=== PATIENT | male | born 1985 | race Caucasian/White ===

== ENCOUNTER 2017-03-26 15:55 | Emergency (ER) | payer SELFPAY ==
--- NOTE | 2017-03-26 17:49 | UC ---
Skin Complaint HPI - HPI Summary HPI Summary: RED ITCHY WEEPING RASH ON SCROTUM AND BILATERAL (MEDIAL) THIGHS FOR TWO WEEKS. NO FEVER. - History of Current Complaint Chief Complaint: UCRash Time Seen by Provider: 03/26/17 17:18 Stated Complaint: RASH-INNER THIGH Hx Obtained From: Patient Onset/Duration: Gradual Onset, Lasting Weeks, Still Present Skin Exposure Onset/Duration: Weeks Ago Timing: Constant Onset Severity: Mild Current Severity: Mild Location: Discrete - BILATERAL MEDIAL THIGHS Character: Pruritus, Redness Aggravating: Nothing Alleviating: Nothing Associated Signs & Symptoms: Positive: Rash, Tenderness. Negative: Fever, Chills, Drainage Related History: Possible Reaction to: Environmental Exposure - Allergy/Home Medications Allergies/Adverse Reactions: Allergies Allergy/AdvReac Type Severity Reaction Status Date / Time No Known Allergies Allergy Verified 03/26/17 16:32 Review of Systems Constitutional: Negative Skin: Rash Eyes: Negative ENT: Negative Respiratory: Negative Cardiovascular: Negative Gastrointestinal: Negative Genitourinary: Negative Motor: Negative Neurovascular: Negative Musculoskeletal: Negative Neurological: Negative Psychological: Negative All Other Systems Reviewed And Are Negative: Yes PMH/Surg Hx/FS Hx/Imm Hx Previously Healthy: Yes Endocrine History Of: Denies: Diabetes, Thyroid Disease Cardiovascular History Of: Reports: Hypertension Denies: Cardiac Disorders, Pacemaker/ICD Respiratory History Of: Denies: COPD, Asthma GI/ History Of: Denies: Ulcer Psychological History Of: Denies: Depression Cancer History Of: Denies: Lung Cancer - Surgical History Surgical History: Yes Surgery Procedure, Year, and Place: bilateral knee reconstruction - Family History Known Family History: Positive: Hypertension, Diabetes - Social History Occupation: Employed Full-time Lives: With Family Alcohol Use: Rare Substance Use Type: None Smoking Status (MU): Light Every Day Tobacco Smoker Type: Cigarettes Amount Used/How Often: 2 CIGS PER DAY Length of Time of Smoking/Using Tobacco: 15 yrs Have You Smoked in the Last Year: Yes Cessation Counseling: Patient Advised to Stop Physical Exam Triage Information Reviewed: Yes Appearance: Well-Appearing, No Pain Distress, Well-Nourished Vital Signs: Initial Vital Signs Temp 98 F 03/26/17 16:25 Pulse 71 03/26/17 16:25 Resp 18 03/26/17 16:25 BP 150/79 03/26/17 16:25 Vital Signs Reviewed: Yes Eye Exam: Normal ENT Exam: Normal ENT: Positive: Normal ENT inspection, Hearing grossly normal, Pharynx normal, TMs normal Dental Exam: Normal Neck exam: Normal Neck: Positive: Supple, Nontender, No Lymphadenopathy Respiratory Exam: Normal Respiratory: Positive: Chest non-tender, Lungs clear, Normal breath sounds, No respiratory distress, No accessory muscle use Cardiovascular Exam: Normal Cardiovascular: Positive: RRR, No Murmur, Pulses Normal Abdominal Exam: Normal Musculoskeletal Exam: Normal Musculoskeletal: Positive: Strength Intact, ROM Intact Neurological Exam: Normal Psychological Exam: Normal Psychological: Positive: Normal Response To Family Skin: Positive: rashes - ERRYTHEMATOUS MACUAL RASH SCROTUM AND BILATERAL MEDIAL THIGHS Course/Dx - Differential Diagnoses - Skin Complaint Differential Diagnoses: Cellulitis, Diabetes, MRSA, Poison Brii, Poison [place], Tinea, Varicella Zoster, Viral Exanthem - Diagnoses Provider Diagnoses: TINEA CRURIS Discharge - Discharge Plan Condition: Stable Disposition: HOME Prescriptions: Fluconazole [Diflucan 150 MG (NF)] 150 mg PO ONCE #1 tab Ketoconazole 2 % CREAM (NF) [Nizoral 2% CREAM (NF)] 1 applic TOPICAL TID #1 tube Patient Education Materials: Gianni Witt (ED) Referrals: Michael Ambriz MD [Primary Care Provider] -
[2017-03-26 18:02] VITALS: BP 137/101
== END 2017-03-26 18:06 | disposition home or self-care (01) ==
LOC: UCCORT 15:55
DX: B35.6 Tinea cruris (principal); F17.210 Nicotine dependence, cigarettes, uncomplicated; Z96.653 Presence of artificial knee joint, bilateral
CPT/HCPCS: 99212; G0463

== ENCOUNTER 2018-04-08 15:09 | Emergency (ER) | payer OTHER ==
--- OUTSIDE RECORDS SUMMARY | 2018-04-08 15:25 | XMS REPORT ---
:1985 External Reference #:[id number] Author Organization [facility] 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 Payers Type Date Identification Numbers Payment Provider Subscriber Commercial Effective: Policy Number: [facility] Rahul Valerio 2017 [id number] PayID: [id number] [address] [place] [address] Medipalmetto Part B Effective: Policy Number: Medicaid/[facility] Rahul Valerio 2016 [id number] Systems PayID: [id number] [address] [place] [address] Medigap Part B Effective: Policy Number: Medicaid/[facility] Rahul Valerio 2003 [id number] Systems Expires: 2010 PayID: [id number] [address] [place] [address] Commercial Expires: 2010 Policy Number: [facility] Rahul Valerio [id number] PayID: [id number] [place] [address] Problems Date Description Provider Status Onset: 10/01/2014 Shoulder joint unstable Michael Ambriz M.D. Active Onset: 10/01/2014 Closed fracture of clavicle Michael Ambriz M.D. Active Onset: 04/01/2015 Atopic dermatitis Michael Ambriz M.D. Active Onset: 04/01/2015 Benign essential hypertension Michael Ambriz M.D. Active Onset: 04/01/2015 Allergic rhinitis Michael Ambriz M.D. Active Onset: 04/01/2015 Tobacco user Michael Ambriz M.D. Active Onset: 04/11/2015 Hypothyroidism Michael Ambriz M.D. Active Family History Date Family Member(s) Problem(s) Comments Father 55 Father No Current Problems Mother 53 Mother No Current Problems First Sister 29 First Sister No Current Problems Social History Type Date Description Comments Marital Status Legal Status: Never Cigarette Use Current Cigarette Smoker pt has smoked half a pack a day for 10 years ETOH Use Currently consumes alcohol pt will drink heavy twice a week Smoking Patient is a current smoker, smokes every day Daily Caffeine Consumes on average 48oz of soda per day Allergies, Adverse Reactions, Alerts Date Description Reaction Status Severity Comments 02/23/2012 NKDA active Medications Medication Date Status Form Strength Qnty SIG Indications Ordering Provider Lisinopril-[place] Active Tablets 20-25mg 90tabs 1 by mouth I10 Pb, chlorothiazide 018 every day Katemad Krzysztof Oneill Clobetasol Active Cream 0.05% 120gm apply to L40.9 Pb, Propionate E 018 affected Ahmad M., skin three M.D. times a day as needed Clobetasol Hx Cream 0.05% 60gm apply to L40.9 Pb, Propionate E 016 - affected Ahmad M., skin three M.D. 018 times a day as needed Lotrisone Hx Cream 1-0.05% 135gm apply to B35.4 Pb, 016 - affected Ahmad M., area three M.D. 016 times a day Clotrimazole/Bet Hx Lotion 1-0.05% 60ml Apply To B35.4 Pb, amethasone 016 - Affected Ahmad M., Dipropionate Area tid M.D. 018 prn Prednisone 01/07/2 Hx Tablets 20mg 18tabs 3 tab by M54.5 Pb, 016 - mouth Ahmad M., daily 3 M.D. 016 days, then 2 tab daily x 3 d , then 1 tab daily 3d Ciprofloxacin Hx Tablets 500mg 20tabs 1 by mouth 461.8 Pb, HCL 015 - twice a Ahmad M., day M.D. 015 382.9 466.0 Prednisone 01/18/2015 - Hx Tablets 20mg 8tabs 2 tab by 461.8 Pb, Ahmad 01/22/2015 mouth daily 4 M., M.D. days 478.19 786.05 Lisinopril-Hydrochlorothiazide 01/18/2015 Hx Tablets 20-12.5mg 90tabs 1 tab I10 Pb, - by mad 03/30/2018 mouth M., every M.D. day No Active Medications 10/01/2014 [facility] Krzysztof Oneill Erythromycin 12/27/2013 Hx Ointment 5mg/GM 1Tube apply 918. Pb, - 1cm 1 mad 01/01/2014 ribbon MPratibha, into M.D. left lower lid 4x/day for 5 days 372.00 No Active 04/24/2013 - Hx Unknown Medications 12/27/2013 Diflucan 02/23/2012 - Hx Tablets 100mg 1 by mouth 110.5 Pb, [facility]D Krzysztof Oneill Lotrisone 02/23/2012 - Hx Cream 1-0.05% bid x 10d 110.5 Pb, [facility] 04/03/2013 Krzysztof Oneill Immunizations CPT Code Status Date Vaccine Lot # [id number] Given 08/31/2000 Td 7 Years And Older [id number] Refused 10/11/2015 Flu Vaccine [id number] Refused 10/01/2014 Flu Vaccine Vital Signs Date Vital Result Comment 03/30/2018 BP Systolic 148 mmHg BP Diastolic 88 mmHg Height 72 inches 6'0" Weight 304.00 lb BMI (Body Mass Index) 41.2 kg/m2 Heart Rate 78 /min Respiratory Rate 16 /min 03/16/2018 BP Systolic 146 mmHg BP Diastolic 100 mmHg Height 72 inches 6'0" Weight 304.00 lb BMI (Body Mass Index) 41.2 kg/m2 Heart Rate 66 /min Respiratory Rate 18 /min 11/03/2016 BP Systolic 138 mmHg BP Diastolic 82 mmHg Height 72 inches 6'0" Weight 304.00 lb BMI (Body Mass Index) 41.2 kg/m2 Heart Rate 87 /min Respiratory Rate 18 /min 10/13/2016 BP Systolic 146 mmHg BP Diastolic 90 mmHg Height 72 inches 6'0" Weight 304.00 lb BMI (Body Mass Index) 41.2 kg/m2 Heart Rate 71 /min Respiratory Rate 18 /min 06/18/2016 BP Systolic 138 mmHg BP Diastolic 84 mmHg Height 72 inches 6'0" Weight 301.00 lb BMI (Body Mass Index) 40.8 kg/m2 Heart Rate 98 /min Respiratory Rate 22 /min 05/12/2016 BP Systolic 126 mmHg BP Diastolic 80 mmHg Height 72 inches 6'0" Weight 296.00 lb BMI (Body Mass Index) 40.1 kg/m2 Heart Rate 76 /min Respiratory Rate 20 /min 04/28/2016 BP Systolic 130 mmHg BP Diastolic 82 mmHg Height 72 inches 6'0" Weight 296.00 lb BMI (Body Mass Index) 40.1 kg/m2 Heart Rate 82 /min Respiratory Rate 19 /min 11/07/2015 BP Systolic 144 mmHg BP Diastolic 92 mmHg Height 72 inches 6'0" Weight 300.00 lb BMI (Body Mass Index) 40.7 kg/m2 Heart Rate 93 /min Body Temperature 96.3 F Respiratory Rate 18 /min 10/28/2015 BP Systolic 139 mmHg BP Diastolic 89 mmHg Height 72 inches 6'0" Weight 302.00 lb BMI (Body Mass Index) 41.0 kg/m2 Heart Rate 79 /min Body Temperature 97.0 F Respiratory Rate 18 /min 10/11/2015 BP Systolic 130 mmHg BP Diastolic 82 mmHg Height 72 inches 6'0" Weight 305.00 lb BMI (Body Mass Index) 41.4 kg/m2 Heart Rate 76 /min Respiratory Rate 18 /min 04/11/2015 BP Systolic 138 mmHg BP Diastolic 89 mmHg Height 72 inches 6'0" Weight 304.00 lb BMI (Body Mass Index) 41.2 kg/m2 Heart Rate 88 /min Respiratory Rate 18 /min 04/01/2015 BP Systolic 119 mmHg BP Diastolic 78 mmHg Height 72 inches 6'0" Weight 304.00 lb BMI (Body Mass Index) 41.2 kg/m2 Heart Rate 72 /min Respiratory Rate 18 /min 03/01/2015 BP Systolic 154 mmHg machine BP Diastolic 87 mmHg machine BP Systolic Recheck 142 mmHg manual BP Diastolic Recheck 88 mmHg manual Height 72 inches 6'0" Weight 314.00 lb BMI (Body Mass Index) 42.6 kg/m2 Respiratory Rate 18 /min 01/18/2015 BP Systolic 142 mmHg manual BP Diastolic 98 mmHg manual BP Systolic Recheck 160 mmHg machine BP Diastolic Recheck 101 mmHg machine Height 72 inches 6'0" Weight 309.00 lb BMI (Body Mass Index) 41.9 kg/m2 Heart Rate 84 /min Body Temperature 98.2 F Respiratory Rate 16 /min 10/19/2014 BP Systolic 149 mmHg BP Diastolic 95 mmHg BP Systolic Recheck 158 mmHg BP Diastolic Recheck 96 mmHg Height 72 inches 6'0" Weight 307.00 lb BMI (Body Mass Index) 41.6 kg/m2 Heart Rate 89 /min Respiratory Rate 20 /min 10/01/2014 BP Systolic 153 mmHg BP Diastolic 96 mmHg BP Systolic Recheck 138 mmHg BP Diastolic Recheck 86 mmHg Height 72 inches 6'0" Weight 312.00 lb BMI (Body Mass Index) 42.3 kg/m2 Heart Rate 86 /min Respiratory Rate 16 /min 12/27/2013 BP Systolic 130 mmHg BP Diastolic 74 mmHg Height 72 inches 6'0" Weight 289.00 lb BMI (Body Mass Index) 39.2 kg/m2 Heart Rate 111 /min Respiratory Rate 18 /min 04/24/2013 BP Systolic 130 mmHg BP Diastolic 82 mmHg Height 72 inches 6'0" Weight 264.00 lb BMI (Body Mass Index) 35.8 kg/m2 Heart Rate 100 /min Respiratory Rate 20 /min 02/23/2012 BP Systolic 148 mmHg BP Diastolic 96 mmHg Height 72 inches 6'0" Weight 262.00 lb BMI (Body Mass Index) 35.5 kg/m2 Heart Rate 91 /min Last Menstrual Period 0 Respiratory Rate 14 /min Results Test Date Test Result H/L Range Note Laboratory test finding 03/16/2018 Hemoglobin A1c (Glyco HGB) 5.1 % 4.0- 5.6 1 Erythrocyte Sed Rate 11 mm/Hr 0-14 Vitamin D Total 25(Oh) 19.8 ng/mL Low 20-50 Lipid Profile (Trig/Chol/HDL) 03/16/2018 Triglycerides 294 mg/dL 2 Cholesterol 167 mg/dL 3 HDL Cholesterol 26.8 mg/dL 4 LDL Cholesterol 81 mg/dL 5 CBC Auto Diff 03/16/2018 White Blood Count 7.6 10^3/uL 3.5-10.8 Red Blood Count 5.24 10^6/uL 4.0-5.4 Hemoglobin 14.8 g/dL 14.0-18.0 Hematocrit 43 % 42-52 Mean Corpuscular Volume 83 fL 80-94 Mean Corpuscular Hemoglobin 28 pg 27-31 Mean Corpuscular HGB Conc 34 g/dL 31-36 Red Cell Distribution Width 15 % 10.5-15 Platelet Count 301 10^3/uL 150-450 Mean Platelet Volume 8.0 um3 7.4-10.4 Abs Neutrophils 4.6 10^3/uL 1.5-7.7 Abs Lymphocytes 2.4 10^3/uL 1.0-4.8 Abs Monocytes 0.4 10^3/uL 0-0.8 Abs Eosinophils 0.1 10^3/uL 0-0.6 Abs Basophils 0 10^3/uL 0-0.2 Abs Nucleated RBC 0 10^3/uL Granulocyte % 60.8 % 38-83 Lymphocyte % 32.1 % 25-47 Monocyte % 5.2 % 0-7 Eosinophil % 1.6 % 0-6 Basophil % 0.3 % 0-2 Nucleated Red Blood Cells % 0.1 Laboratory test finding 03/16/2018 TSH (Thyroid Stim Horm) 4.86 mcIU/mL 0.34-5.60 Free T4 (Free Thyroxine) 0.80 ng/dL 0.61-1.12 Comp Metabolic Panel 03/16/2018 Sodium 138 mmol/L Low 139-145 Potassium 4.3 mmol/L 3.5-5.0 Chloride 105 mmol/L 101-111 Co2 Carbon Dioxide 26 mmol/L 22-32 Anion Gap 7 mmol/L 2-11 Glucose 102 mg/dL High 70-100 Blood Urea Nitrogen 13 mg/dL 6-24 Creatinine 0.79 mg/dL 0.67-1.17 BUN/Creatinine Ratio 16.5 8-20 Calcium 8.8 mg/dL 8.6-10.3 Total Protein 6.2 g/dL Low 6.4-8.9 Albumin 3.9 g/dL 3.2-5.2 Globulin 2.3 g/dL 2-4 Albumin/Globulin Ratio 1.7 1-3 Total Bilirubin 0.70 mg/dL 0.2-1.0 Alkaline Phosphatase 87 U/L 34-104 Alt 38 U/L 7-52 Ast 21 U/L 13-39 Egfr Non- 113.0 >60 Egfr 145.3 >60 6 Slide Review 06/05/2017 Slide Review (SEE NOTE) 7, 8 CBS W/Automated Diff 06/05/2017 White Blood Count 11.0 K/uL High 3.4-10.5 7 Red Blood Count 5.28 M/uL 4.20-5.80 7 Hemoglobin 15.7 gm/dL 12.8-17.0 7 Hematocrit 43.9 % 38.0-48.0 7 Mean Cell Volume 83.1 fl 80.0-96.0 7 Mean Corpuscular HGB 29.7 pg 27.0-33.0 7 Mean Corpuscular HGB Conc 35.8 g/dL 31.7-36.0 7 Platelet Count 277 K/uL 150-400 7 Red Cell Distri Width SD 41.2 fl 36-51 7 Red Cell Distri Width %CV 13.8 % 11.6-15.8 7 Mean Platelet Volume 10.0 fL 6.6-10.6 7 Neut% 75.2 % High 33.0-73.0 7 Lymph % 18.3 % Low 20.0-42.0 7 Grundy % 5.8 % 0.0-10.0 7 Eo% 0.5 % 0.0-6.6 7 Bas% 0.2 % 0.0-1.1 7 Neut# 8.27 K/uL High 1.8-7.0 7 Lymph # 2.01 K/uL 1.0-4.0 7 Grundy # 0.64 K/uL 0.0-0.8 7 Eos # 0.06 K/uL 0.0-0.5 7 Baso # 0.02 K/uL 0.0-0.1 7 Urinalysis With Microscopic 06/05/2017 Urine Color YELLOW Yellow 7 Urine Clarity CLEAR Clear 7 Urine Glucose - Dipstick NEGATIVE mg/dL Negative 7 Urine Bilirubin - Dipstick NEGATIVE Negative 7 Urine Ketone NEGATIVE mg/dL Negative 7 Urine Specific Pinckard 1.010 1.010-1.030 7 Urine Blood MODERATE Negative 7 Urine PH 5.5 Low 6.5-7.5 7 Urine Protein - Dipstick 100 mg/dL High Negative 7 Urine Urobilinogen - Dipstick 1.0 E.U./dL 0.2-1.0 7 Urine Nitrite - Dipstick NEGATIVE Negative 7 Urine Leuk Esterase NEGATIVE Negative 7 Urine RBC 10-20 rbc/hpf High 0-2 7 Urine WBC NONE SEEN wbc/hpf 0-7 7 Urine Epithelial Cells NONE SEEN /lpf None Seen 7 Source: URINE, CLEAN CAT <SEE NOTE> 7, 9 Laboratory test finding 06/05/2017 Urine Culture NO GROWTH: FINAL 7, 10 <SEE NOTE> Comprehensive Metabolic 06/05/2017 Glucose 103 mg/dL 74-106 7 Panel BUN 13 mg/dL 7-18 7 Creatinine 1.1 mg/dL 0.6-1.3 7 Glom Filtration Rate, Estimate >60 mL/min >60 7 If >60 mL/min >60 7, 11 BUN/Creat 11.8 ratio 7 Sodium 142 mmol/L 136-145 7 Potassium 3.9 mmol/L 3.5-5.1 7 Chloride 106 mmol/L 98-107 7 Carbon Dioxide 26 mmol/L 21-32 7 Anion Gap 10 mEq/L 8-16 7 Calcium 8.8 mg/dL 8.5-10.1 7 Total Protein 7.8 g/dL 6.4-8.2 7 Albumin 4.0 g/dL 3.4-5.0 7 Globulin 3.8 g/dL 1.9-4.3 7 Alb/Glob 1.1 ratio 7 Bilirubin,Total 0.7 mg/dL 0.2-1.0 7 Sgot/Ast 31 U/L 15-37 7 SGPT/Alt 43 U/L 12-78 7 Alkaline Phosphatase 89 U/L 45-117 7 Laboratory test finding 06/05/2017 Lipase 178 U/L 73-393 7 CBC Auto Diff 10/13/2016 White Blood Count 7.1 10^3/uL 3.5-10.8 Red Blood Count 5.53 10^6/uL High 4.0-5.4 Hemoglobin 15.5 g/dL 14.0-18.0 Hematocrit 47 % 42-52 Mean Corpuscular Volume 85 fL 80-94 Mean Corpuscular Hemoglobin 28 pg 27-31 Mean Corpuscular HGB Conc 33 g/dL 31-36 Red Cell Distribution Width 15 % 10.5-15 Platelet Count 264 10^3/uL 150-450 Mean Platelet Volume 8 um3 7.4-10.4 Abs Neutrophils 3.8 10^3/uL 1.5-7.7 Abs Lymphocytes 2.7 10^3/uL 1.0-4.8 Abs Monocytes 0.4 10^3/uL 0-0.8 Abs Eosinophils 0.1 10^3/uL 0-0.6 Abs Basophils 0.1 10^3/uL 0-0.2 Abs Nucleated RBC 0 10^3/uL Granulocyte % 53.8 % 38-83 Lymphocyte % 38.1 % 25-47 Monocyte % 5.3 % 1-9 Eosinophil % 1.9 % 0-6 Basophil % 0.9 % 0-2 Nucleated Red Blood Cells % 0.1 Comp Metabolic Panel 10/13/2016 Sodium 137 mmol/L 133-145 Potassium 4.1 mmol/L 3.5-5.0 Chloride 103 mmol/L 101-111 Co2 Carbon Dioxide 28 mmol/L 22-32 Anion Gap 6 mmol/L 2-11 Glucose 89 mg/dL 70-100 Blood Urea Nitrogen 10 mg/dL 6-24 Creatinine 0.89 mg/dL 0.67-1.17 BUN/Creatinine Ratio 11.2 8-20 Calcium 9.6 mg/dL 8.6-10.3 Total Protein 6.9 g/dL 6.4-8.9 Albumin 4.2 g/dL 3.2-5.2 Globulin 2.7 g/dL 2-4 Albumin/Globulin Ratio 1.6 1-3 Total Bilirubin 1.00 mg/dL 0.2-1.0 Alkaline Phosphatase 71 U/L 34-104 Alt 39 U/L 7-52 Ast 27 U/L 13-39 Egfr Non- 99.1 >60 Egfr 127.4 >60 12 Lipid Profile (Trig/Chol/HDL) 10/13/2016 Triglycerides 284 mg/dL 13 Cholesterol 172 mg/dL 14 HDL Cholesterol 23.1 mg/dL 15 LDL Cholesterol 92 mg/dL 16 Laboratory test finding 10/13/2016 TSH (Thyroid Stim 4.54 mcIU/mL 0.34- 5.60 17 Horm) Vitamin D Total 25(Oh) 23.3 ng/mL Low 30-50 18 Hemoglobin A1c (Glyco HGB) 5.0 % Less than 6.0 19 CBC Auto Diff 04/28/2016 White Blood Count 9.3 10^3/uL 3.5-10.8 Red Blood Count 5.56 10^6/uL High 4.0-5.4 Hemoglobin 15.8 g/dL 14.0-18.0 Hematocrit 47 % 42-52 Mean Corpuscular Volume 84 fL 80-94 Mean Corpuscular Hemoglobin 28 pg 27-31 Mean Corpuscular HGB Conc 34 g/dL 31-36 Red Cell Distribution Width 14 % 10.5-15 Platelet Count 249 10^3/uL 150-450 Mean Platelet Volume 8 um3 7.4-10.4 Abs Neutrophils 5.7 10^3/uL 1.5-7.7 Abs Lymphocytes 3.0 10^3/uL 1.0-4.8 Abs Monocytes 0.4 10^3/uL 0-0.8 Abs Eosinophils 0.1 10^3/uL 0-0.6 Abs Basophils 0 10^3/uL 0-0.2 Abs Nucleated RBC 0.02 10^3/uL Granulocyte % 61.5 % 38-83 Lymphocyte % 32.5 % 25-47 Monocyte % 4.5 % 1-9 Eosinophil % 1.0 % 0-6 Basophil % 0.5 % 0-2 Nucleated Red Blood Cells % 0.2 Comp Metabolic Panel 04/28/2016 Sodium 137 mmol/L 133-145 Potassium 4.3 mmol/L 3.5-5.0 Chloride 107 mmol/L 101-111 Co2 Carbon Dioxide 24 mmol/L 22-32 Anion Gap 6 mmol/L 2-11 Glucose 105 mg/dL High 70-100 Blood Urea Nitrogen 11 mg/dL 6-24 Creatinine 0.83 mg/dL 0.67-1.17 BUN/Creatinine Ratio 13.3 8-20 Calcium 9.1 mg/dL 8.6-10.3 Total Protein 6.5 g/dL 6.4-8.9 Albumin 4.0 g/dL 3.2-5.2 Globulin 2.5 g/dL 2-4 Albumin/Globulin Ratio 1.6 1-3 Total Bilirubin 0.70 mg/dL 0.2-1.0 Alkaline Phosphatase 107 U/L High 34-104 Alt 29 U/L 7-52 Ast 19 U/L 13-39 Egfr Non- 108.1 >60 Egfr 139.0 >60 20 Lipid Profile (Trig/Chol/HDL) 04/28/2016 Triglycerides 188 mg/dL 21 Cholesterol 190 mg/dL 22 HDL Cholesterol 26.9 mg/dL 23 LDL Cholesterol 126 mg/dL 24 Laboratory test finding 04/28/2016 TSH (Thyroid Stim Horm) 5.41 ?IU/mL 0.34-5.60 25 Free T4 (Free Thyroxine) 0.87 ng/dL 0.61-1.12 26 Laboratory test finding 10/11/2015 TSH (Thyroid Stim Horm) 3.83 ?IU/mL 0.34-5.60 Free T4 (Free Thyroxine) 0.97 ng/mL 0.61-1.12 CBC Auto Diff 10/11/2015 White Blood Count 8.3 10^3/uL 3.5-10.8 Red Blood Count 5.55 10^6/uL High 4.0-5.4 Hemoglobin 15.7 g/dL 14.0-18.0 Hematocrit 48 % 42-52 Mean Corpuscular Volume 87 fL 80-94 Mean Corpuscular Hemoglobin 28 pg 27-31 Mean Corpuscular HGB Conc 33 g/dL 31-36 Red Cell Distribution Width 14 % 10.5-15 Platelet Count 284 10^3/uL 150-450 Mean Platelet Volume 8 um3 7.4-10.4 Abs Neutrophils 4.9 10^3/uL 1.5-7.7 Abs Lymphocytes 2.8 10^3/uL 1.0-4.8 Abs Monocytes 0.4 10^3/uL 0-0.8 Abs Eosinophils 0.1 10^3/uL 0-0.6 Abs Basophils 0 10^3/uL 0-0.2 Abs Nucleated RBC 0.01 10^3/uL Granulocyte % 58.6 % 38-83 Lymphocyte % 34.0 % 25-47 Monocyte % 5.4 % 1-9 Eosinophil % 1.5 % 0-6 Basophil % 0.5 % 0-2 Nucleated Red Blood Cells % 0.1 Comp Metabolic Panel 10/11/2015 Sodium 137 mmol/L 133-145 Potassium 3.9 mmol/L 3.5-5.0 Chloride 103 mmol/L 101-111 Co2 Carbon Dioxide 25 mmol/L 22-32 Anion Gap 9 mmol/L 2-11 Glucose 93 mg/dL 70-100 Blood Urea Nitrogen 16 mg/dL 6-24 Creatinine 0.87 mg/dL 0.67-1.17 BUN/Creatinine Ratio 18.4 8-20 Calcium 9.2 mg/dL 8.6-10.3 Total Protein 6.7 g/dL 6.4-8.9 Albumin 4.4 g/dL 3.2-5.2 Globulin 2.3 g/dL 2-4 Albumin/Globulin Ratio 1.9 1-3 Total Bilirubin 0.80 mg/dL 0.2-1.0 Alkaline Phosphatase 61 U/L 34-104 Alt 58 U/L High 7-52 Ast 26 U/L 13-39 Egfr Non- 102.3 >60 Egfr 131.6 >60 27 Lipid Profile (Trig/Chol/HDL) 10/11/2015 Triglycerides 208 mg/dL 28 Cholesterol 158 mg/dL 29 HDL Cholesterol 23.1 mg/dL 30 LDL Cholesterol 93 mg/dL 31 CBC W/Automated Diff 04/01/2015 White Blood Count 8.1 K/uL 3.4-10.5 Red Blood Count 5.27 M/uL 4.20-5.80 Hemoglobin 15.5 gm/dL 12.8-17.0 Hematocrit 46.1 % 38.0-48.0 Mean Cell Volume 87.5 fl 80.0-96.0 Mean Corpuscular HGB 29.4 pg 27.0-33.0 Mean Corpuscular HGB Conc 33.6 g/dL 31.7-36.0 Platelet Count 263 K/uL 150-400 Red Cell Distri Width SD 46.5 fl 36-51 Red Cell Distri Width %CV 14.8 % 11.6-15.8 Mean Platelet Volume 10.2 fL 6.6-10.6 Neut% 57.0 % 33.0-73.0 Lymph % 34.8 % 17.0-56.0 Grundy % 6.4 % 0.0-10.0 Eo% 1.6 % 0.0-5.0 Bas% 0.2 % 0.1-1.0 Neut# 4.59 K/uL 1.8-7.0 Lymph # 2.81 K/uL 1.8-7.0 Grundy # 0.52 K/uL 0.0-0.8 Eos # 0.13 K/uL 0.0-0.5 Baso # 0.02 K/uL Low 0.1-0.2 Comprehensive Metabolic Panel 04/01/2015 Glucose 90 mg/dL 74-106 BUN 10 mg/dL 7-18 Creatinine 0.8 mg/dL 0.6-1.3 Glom Filtration Rate, Estimate >60 mL/min >60 If >60 mL/min >60 32 BUN/Creat 12.5 ratio Sodium 142 mmol/L 136-145 Potassium 4.4 mmol/L 3.5-5.1 Chloride 106 mmol/L 98-107 Carbon Dioxide 26 mmol/L 21-32 Anion Gap 10 mEq/L 8-16 Calcium 8.5 mg/dL 8.5-10.1 Total Protein 6.6 g/dL 6.4-8.2 Albumin 3.7 g/dL 3.4-5.0 Globulin 2.9 g/dL 1.9-4.3 Alb/Glob 1.3 ratio Bilirubin,Total 0.5 mg/dL 0.2-1.0 Sgot/Ast 22 U/L 15-37 SGPT/Alt 46 U/L 12-78 Alkaline Phosphatase 87 U/L 45-117 Laboratory test finding 04/01/2015 TSH Reflex FT4 4.98 uIU/mL High 0.36- 3.74 33 and/or FT3 C-Reactive Protein,Cardiac 5.67 mg/L <3.0 Free T4 0.86 ng/dL 0.76-1.46 LDL Cholesterol Profile 04/01/2015 Cholesterol 168 mg/dL < 200 34 Triglycerides 247 mg/dL < 150 35 HDL Cholesterol 20 mg/dL > 40 36 LDL-Cholesterol 99 mg/dL < 100 37 1 Therapeutic target for the treatment of diabetes mellitus patients is <7% HBA1C, and in selective patients <6.0%. Please refer to [place] [employer] diabetic care guidelines for further information. 2 Desirable: <150 Borderline High: 150-199 High: 200-499 Very High: >500 3 Desirable: <200 Borderline High: 200-239 High: >239 4 Low: <40 Desirable: 40-60 High: >60 5 Desirable: <100 Near Optimal: 100-129 Borderline High: 130-159 High: 160-189 Very High: >189 6 Because ethnic data is not always readily available, this report includes an eGFR for both -Americans and non- Americans. The National Kidney Disease Education Program (NKDEP) does not endorse the use of the MDRD equation for patients that are not between the ages of 18 and 70, are , have extremes of body size, muscle mass, or nutritional status, or are non- or non-. According to the National Kidney Foundation, irrespective of diagnosis, the stage of the disease is based on the level of kidney function: Stage Description GFR(mL/min/1.73 m(2)) 1 Kidney damage with normal or decreased GFR 90 2 Kidney damage with mild decrease in GFR 60-89 3 Moderate decrease in GFR 30-59 4 Severe decrease in GFR 15-29 5 Kidney failure <15 (or dialysis) 7 BACK PAIN AFTER DIRT BIKE CRASH 8 Instrument flagged sample for slide review. Less than 10% Bands seen, no other immature WBC's seen. RBC morphology essentially normal. Platelet estimate=Normal 9 URINE, CLEAN CATCH 10 NO GROWTH: FINAL REPORT 11 Note: Persistent reduction for 3 months or more in an eGFR <60 mL/min/1.73 m2 defines CKD. Patients with eGFR values >/=60 mL/min/1.73 m2 may also have CKD if evidence of persistent proteinuria is present. The original MDRD equation for estimated GFR is not valid for patients less than 18 years of age. Additional information may be found at www.kdoqi.org. 12 Because ethnic data is not always readily available, this report includes an eGFR for both -Americans and non- Americans. The National Kidney Disease Education Program (NKDEP) does not endorse the use of the MDRD equation for patients that are not between the ages of 18 and 70, are , have extremes of body size, muscle mass, or nutritional status, or are non- or non-. According to the National Kidney Foundation, irrespective of diagnosis, the stage of the disease is based on the level of kidney function: Stage Description GFR(mL/min/1.73 m(2)) 1 Kidney damage with normal or decreased GFR 90 2 Kidney damage with mild decrease in GFR 60-89 3 Moderate decrease in GFR 30-59 4 Severe decrease in GFR 15-29 5 Kidney failure <15 (or dialysis) 13 Desirable <150 Borderline high 150-199 High 200-499 Very High >500 14 Desirable <200 Borderline high 200-239 High >239 15 Low <40 Desirable: 40-60 High: >60 16 Desirable: <100 mg/dL Near Optimal: 100-129 mg/dL Borderline High: 130-159 mg/dL High: 160-189 mg/dL Very High: >189 mg/dL 17 [id number] Therapeutic target for the treatment of diabetes Mellitus patients is <7% HBA1C, and in selective patients <6.0%.Please refer to [place] [employer] Diabetic care guidelines for further information. 20 Because ethnic data is not always readily available, this report includes an eGFR for both -Americans and non- Americans. The National Kidney Disease Education Program (NKDEP) does not endorse the use of the MDRD equation for patients that are not between the ages of 18 and 70, are , have extremes of body size, muscle mass, or nutritional status, or are non- or non-. According to the National Kidney Foundation, irrespective of diagnosis, the stage of the disease is based on the level of kidney function: Stage Description GFR(mL/min/1.73 m(2)) 1 Kidney damage with normal or decreased GFR 90 2 Kidney damage with mild decrease in GFR 60-89 3 Moderate decrease in GFR 30-59 4 Severe decrease in GFR 15-29 5 Kidney failure <15 (or dialysis) 21 Desirable <150 Borderline high 150-199 High 200-499 Very High >500 22 Desirable <200 Borderline high 200-239 High >239 23 Low <40 Desirable: 40-60 High: >60 24 Desirable: <100 mg/dL Near Optimal: 100-129 mg/dL Borderline High: 130-159 mg/dL High: 160-189 mg/dL Very High: >189 mg/dL 25 [id number] Because ethnic data is not always readily available, this report includes an eGFR for both -Americans and non- Americans. The National Kidney Disease Education Program (NKDEP) does not endorse the use of the MDRD equation for patients that are not between the ages of 18 and 70, are , have extremes of body size, muscle mass, or nutritional status, or are non- or non-. According to the National Kidney Foundation, irrespective of diagnosis, the stage of the disease is based on the level of kidney function: Stage Description GFR(mL/min/1.73 m(2)) 1 Kidney damage with normal or decreased GFR 90 2 Kidney damage with mild decrease in GFR 60-89 3 Moderate decrease in GFR 30-59 4 Severe decrease in GFR 15-29 5 Kidney failure <15 (or dialysis) 28 Desirable <150 Borderline high 150-199 High 200-499 Very High >500 29 Desirable <200 Borderline high 200-239 High >239 30 Low <40 Desirable: 40-60 High: >60 31 Desirable: <100 mg/dL Near Optimal: 100-129 mg/dL Borderline High: 130-159 mg/dL High: 160-189 mg/dL Very High: >189 mg/dL 32 Note: Persistent reduction for 3 months or more in an eGFR <60 mL/min/1.73 m2 defines CKD. Patients with eGFR values >/=60 mL/min/1.73 m2 may also have CKD if evidence of persistent proteinuria is present. The original MDRD equation for estimated GFR is not valid for patients less than 18 years of age. Additional information may be found at www.kdo[facility].org. 33 QUERY: Reflex add FT3? N QUERY: Reflex add FT4? Y 34 Reference Guidelines*: Desirable: ........... < 200 mg/dL Borderline High: ..... 200-239 mg/dL High: ................ >=240 mg/dL * The National Cholesterol Education Program (NCEP) 35 Reference Guidelines*: Normal: ............. < 150 mg/dL Borderline High: .... 150-199 mg/dL High: ............... 200-499 mg/dL Very High: .......... > 500 mg/dL * Source: National Cholesterol Education Program (NCEP) 36 Reference Guidelines*: Low HDL: ..... < 40 mg/dL Normal: ..... 40-60 mg/dL Desirable: ... > 60 mg/dL *The National Cholesterol Education Program(NCEP) 37 Reference Guidelines*: Optimal:........... <100 mg/dL Near Optimal....... 100-129 mg/dL Borderline High.... 130-159 mg/dL High............... 160-189 mg/dL Very High.......... >=190 mg/dL * Source: National Cholesterol Education Program (NCEP) Procedures Date CPT Code Description Status 10/28/2015 20463 Visual Screening Test Completed 10/28/2015 96049 Audiometry, Bekesy, Screening Completed 03/01/2015 35774 EKG Completed 01/18/2015 14951 Spirometry Completed 01/18/2015 43134 Tympanometry Completed 10/01/2014 63349 Visual Screening Test Completed 10/01/2014 49082 Audiometry, Bekesy, Screening Completed 12/27/2013 15615 Visual Screening Test Completed 11/22/2008 46831 Nail Avulsion Partial Or Complete,Simple Single Completed 06/18/2005 69766 Nail Avulsion Partial Or Complete,Simple Single Completed Encounters Type Date Location Provider CPT E/M Dx Office Visit 03/30/2018 9:45a [facility] Michael Ambriz M.D. 63979 I10 M54.5 J30.2 L20.9 F17.210 E03.9 H90.2 S42.001D E78.2 R73.01 M25.512 L40.9 L50.9 B35.4 E55.9 M51.35 Office Visit 03/16/2018 8:45a [facility] Michael Ambriz M.D. 98098 I10 M54.5 J30.2 L20.9 F17.210 E03.9 Z68.41 H90.2 S42.001D E78.2 R73.01 M25.512 L40.9 L50.9 B35.4 E55.9 Z00.01 Office Visit 11/03/2016 8:45a [facility] Michael Ambriz M.D. 51878 I10 M54.5 J30.2 L20.9 F17.210 E03.9 H90.2 S42.001D E78.2 R73.01 M25.512 L40.9 L50.9 B35.4 E55.9 Office Visit 10/13/2016 8:45a [facility] Michael Ambriz M.D. 18532 I10 M54.5 J30.2 L20.9 F17.210 E03.9 H90.2 S42.001D E78.2 R73.01 M25.512 L40.9 L50.9 B35.4 E55.9 Office Visit 06/18/2016 10:45a [facility] Michael Ambriz M.D. 13360 L40.9 L50.9 B35.4 I10 M54.5 J30.2 L20.9 F17.210 E03.9 H90.2 S42.001D E78.2 R73.01 M25.512 Office Visit 05/12/2016 8:30a [facility] Michael Ambriz M.D. 89028 I10 M54.5 J30.2 M25.512 L20.9 F17.210 E03.9 H90.2 S42.001D E78.2 R73.01 Office Visit 04/28/2016 8:45a [facility] Michael Ambriz M.D. 47882 I10 M54.5 J30.2 M25.512 L20.9 F17.210 E03.9 H90.2 E78.2 S42.001D Office Visit 11/07/2015 2:00p [facility] Michael Ambriz M.D. 73285 M54.5 S33.5xxA I10 J30.2 M25.512 L20.9 F17.210 E03.9 H90.2 E78.2 Z68.41 R35.0 Office Visit 10/28/2015 2:45p [facility] Michael Ambriz M.D. 09816 Z00.01 I10 J30.2 M25.512 L20.9 F17.210 E03.9 H90.2 E78.2 Z68.41 Office Visit 10/11/2015 9:00a [facility] Michael Ambriz M.D. 81019 I10 J30.2 M25.512 L20.9 F17.210 E03.9 Office Visit 04/11/2015 9:00a [facility] Michael Ambriz M.D. 98713 401.1 477.8 719.41 691.8 305.1 244.9 Office Visit 04/01/2015 9:00a [facility] Michael Ambriz M.D. 45023 401.1 477.8 719.41 691.8 305.1 Office Visit 03/01/2015 9:15a [facility] Michael Ambriz M.D. 14219 401.1 477.8 719.41 691.8 305.1 Office Visit 01/18/2015 9:45a [facility] Michael Ambriz M.D. 04594 461.8 466.0 382.9 786.2 786.05 478.19 477.8 305.1 401.1 780.79 Office Visit 10/19/2014 2:30p [facility] Dagoberto Martina [facility] 88961 726.19 719.41 796.2 305.1 Office Visit 10/01/2014 11:30a [facility] Michael Ambriz M.D. 11604 V70.0 719.41 726.19 796.2 305.1 V85.41 Office Visit 12/27/2013 2:15p [facility] Ronel Moffett, [facility] 69307 918.1 372.00 Office Visit 04/24/2013 1:30p [facility] Ronel Moffett, [facility] 23104 729.5 842.19 840.8 Office Visit 02/23/2012 3:30p [facility] Michael Ambriz M.D. 26815 682.9 110.5 782.1 Office Visit 02/05/2011 3:00p [facility] Michael Ambriz M.D. 64025 466.0 786.2 Office Visit 11/28/2009 11:15a [facility] Michael Ambriz M.D. 30937 719.46 Office Visit 11/26/2009 10:15a [facility] Michael Ambriz M.D. 08848 719.46 782.3 300.00 Office Visit 11/19/2009 3:30p [facility] Michael Ambriz M.D. 41357 719.46 782.3 Office Visit 06/11/2009 3:00p [facility] Michael Ambriz M.D. 46492 719.41 Plan of Care 03/30/2018 - Michael Ambriz M.D.I10 Essential (primary) hypertensionNew Medication:Lisinopril-Hydrochlorothiazide 20-25 mgComments:CHECK BP TIW ( PRN)F/ U LABDIET AND FLUID COUNSELING LOW SODIUM DIETWT LOSSF/U LABSMOKING/TOBACCO ABUSE CESSATIONFollow up:6 months.M54.5 Low back painComments:EXERCISE/HEAT / MESSAGEAVOID HEAVY LIFTING WT LOSSTYLENOL OR MOTRIN PRNJ30.2 Other seasonal allergic rhinitisComments:INCREASE PO FLUID USE ANTIHISTAMINE PRN SECOND HAND SMOKING AVOIDANCE SMOKING CESSATION PASKXQJERGUF25.9 Atopic dermatitis, unspecifiedComments:SKIN CARE INSTRUCTIONS LOTION OR BABY OIL 2-3 APPLICATION PER DAYUSE MOISTURIZING SOAPAVOID PROLONGED WATER EXPOSUREAVOID USING HOT WATER IN LKCQMMX98.210 Nicotine dependence, cigarettes, uncomplicatedComments:SMOKING CESSATION COUNCELLING DISCUSSION RE: CESSATION MMDDSNYH52.9 Hypothyroidism, unspecifiedComments:STABLE OFF RX F/U TSH/ FT4H90.2 Conductive hearing loss, unspecifiedComments:OBSERVE F/U WITH ENT PRN SMOKING ZGIGWHWXZO10.001D Fx unsp part of r clavicle, subs for fx w routn healComments:OBSERVEF/U WITH ORTHO PRNE78.2 Mixed hyperlipidemiaComments:DIET REVIEWED CONTINUE DIETWT LOSSF/U LAB FBW DIET REVIEWED CONTINUE DIETWT LOSSF/U LAB FBWR73.01 Impaired fasting glucoseComments:F/U HGAICFS QAC AN HS PRNLOW GLUCOSE DIETM25.512 Pain in left shoulderComments:EXERCISE/HEAT /MESSAGE AVOID HEAVY LIFTINGTYLENOL OR MOTRIN PRNL40.9 Psoriasis, unspecifiedNew Medication:Clobetasol Propionate E 0.05 % Comments:SKIN CARE INSTRUCTIONS LOTION OR BABY OIL 2-3 APPLICATION PER DAYUSE MOISTURIZING SOAPAVOID PROLONGED WATER EXPOSUREAVOID USING HOT WATER IN YNQTUDA31.9 Urticaria, unspecifiedComments:SKIN CAREAVOID ITCHING/SCRATCHING SKINLOTION PRN BENEDRYL/ ANTIHISTAMINE PRNB35.4 Tinea corporisComments:SKIN CARE MTEKRCMKLKMGM41.9 Vitamin D deficiency, unspecifiedComments:INCREASE EXPOSURE TO SUNREVIEW OF DIETM51.35 Other intervertebral disc degeneration, thoracolumbar regionComments:EXERCISE/HEAT /MESSAGEAVOID HEAVY LIFTING WT LOSSTYLENOL OR MOTRIN PRN
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
[2018-04-08 15:36] VITALS: BP 141/89
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
[2018-04-08] MEDS ORDERED: Ketorolac INJ* 30 MG/ML 1 ML VIAL IM ONE (16:18)
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
--- NOTE | 2018-04-08 17:45 | RAD ---
Indication: Back pain. 2 views of the thoracic spine demonstrates compression fracture of T7. Dorsal fusion is noted T4-T9. IMPRESSION: Compression fracture of T7. The remainder of the vertebra are unremarkable.
== END 2018-04-08 18:10 | disposition home or self-care (01) ==
LOC: UCCORT 15:09
DX: R07.81 Pleurodynia (principal); M54.6 Pain in thoracic spine; I10 Essential (primary) hypertension; G95.29 Other cord compression; F17.210 Nicotine dependence, cigarettes, uncomplicated; Z98.1 Arthrodesis status; Z87.828 Personal history of other (healed) physical injury and trauma; Z79.899 Other long term (current) drug therapy
CPT/HCPCS: 72070; 96372; 99212; G0463; J1885